=== PATIENT | female | born 1990 | race Two or more races ===

== ENCOUNTER 2017-12-17 23:04 | Emergency (ER) | payer OTHER ==
[~2017-12-17] VITALS: Ht 157.5 cm; Wt 53.5 kg
[2017-12-17 23:15] VITALS: BP 133/80
[2017-12-18] MEDS ORDERED: IBUPROFEN600 MG ORAL (00:04)
[2017-12-18] MEDS ORDERED: BENADRYL ALLERG25 M1 PO (00:04)
[2017-12-18 00:25] VITALS: BP 118/74
--- NOTE | 2017-12-18 02:31 | Emergency Room Report ---
History of Present Illness General Chief Complaint: Skin Rash/Abscess Source: Patient Present Illness HPI 27-year-old female, in no significant past medical history, presenting with bug bites to the left hand and left foot. States it is very itchy. No shortness of breath no wheezing no throat swelling. Has not taken any medications. No fever no chills Allergies: Coded Allergies: No Known Allergies (Unverified , 12/17/17) Patient History Past Medical History: see triage record Past Surgical History: none Pertinent Family History: none Last Menstrual Period: NA Now: No Reviewed Nursing Documentation: PMH: Agreed, PSxH: Agreed Review of Systems All Other Systems: negative except mentioned in HPI Physical Exam Vital Signs Date Time Temp Pulse Resp B/P (MAP) Pulse Ox O2 Delivery O2 Flow Rate FiO2 12/17/17 23:15 98.1 58 18 133/80 98 Room Air Sp02 EP Interpretation: reviewed, normal General Appearance: normal inspection, well appearing, no apparent distress, alert, GCS 15, non-toxic Head: normocephalic, atraumatic Eyes: bilateral eye normal inspection, bilateral eye PERRL, bilateral eye EOMI ENT: normal ENT inspection, normal pharynx, normal voice, moist mucus membranes Neck: normal inspection, full range of motion, supple Respiratory: normal inspection, lungs clear, normal breath sounds, no respiratory distress, no retraction, no wheezing, speaking full sentences, chest symmetrical Cardiovascular #1: normal inspection, regular rate, rhythm, no edema, normal capillary refill Cardiovascular #2: 2+ radial (R), 2+ radial (L) Gastrointestinal: normal inspection, non tender, soft, non-distended, no guarding Musculoskeletal: normal inspection, back normal, normal range of motion, non- tender Neurologic: normal inspection, alert, oriented x3, responsive, motor strength/ tone normal, sensory intact, normal gait, speech normal Psychiatric: normal inspection, judgement/insight normal, memory normal Skin: warm/dry, well hydrated, normal turgor, other - Raised and slightly indurated of bite noted to the dorsum of the left hand, small less than 2 cm, and dorsum of left foot, less than 2 cm. Blanching. Nontender. No apparent drainage. Medical Decision Making Diagnostic Impression: Primary Impression: Bug bites ER Course 27-year-old female with bug bites DDX: Itchy bug bites, no signs of cellulitis Plan: Benadryl and Motrin ER course: Patient has remained stable during ED stay. Disposition: Patient is to be discharged to home. Prescriptions given are Benadryl and Motrin Patient is instructed to follow up with their primary care doctor within 5 days. Please note that this Emergency Department Report was dictated using [employer] therapy assistant technology software, occasionally this can lead to erroneous entry secondary to interpretation by the dictation equipment Last Vital Signs Date Time Temp Pulse Resp B/P (MAP) Pulse Ox O2 Delivery O2 Flow Rate FiO2 12/18/17 00:25 98.1 61 15 124/71 98 Room Air Disposition: HOME, SELF-CARE Condition: Improved Scripts Diphenhydramine Hcl (BENADRYL ALLERGY) 25 Mg Tablet 25 MG PO Q6HR, #30 TAB Prov: Asya Latham M.D. 12/18/17 Ibuprofen* (MOTRIN*) 600 Mg Tablet 600 MG ORAL Q8H Y for For Pain, #30 TAB 0 Refills Prov: Asya Latham M.D. 12/18/17 Referrals: [facility],REFERRING (PCP) Patient Instructions: Insect Bite, [id number] Asya Latham M.D. Dec 18, 2017 02:31
== END 2017-12-18 00:25 | disposition home or self-care (01) ==
LOC: EMR 23:25
DX: S60.562A Insect bite (nonvenomous) of left hand, initial encounter (principal); S90.862A Insect bite (nonvenomous), left foot, initial encounter; W57.XXXA Bitten or stung by nonvenomous insect and other nonvenomous arthropods, initial encounter; Y92.9 Unspecified place or not applicable
CPT/HCPCS: 99283